=== PATIENT | female | born 1970 | race Caucasian/White ===

== ENCOUNTER 2019-01-15 09:07 | Day surgery (SDC) | payer OTHER ==
[~2019-01-15 09:07] MED LIST: Buffered Lidocaine 1% SYRIN* 1 ML/SYRINGE INTRADERM ONE; Lactated Ringers 1000 ML Bag* 1,000 ML IV SCH; Sodium Citrate/Citric Acid* 15 ML UDC PO ONE
[2019-01-15] MEDS ORDERED: Sodium Citrate/Citric Acid* 15 ML UDC ONE (09:22)
[2019-01-15] MEDS ORDERED: Bupivacaine 0.25% SDV PF* 10 ML VIAL INJ ONE ×2 (10:00→10:29)
[2019-01-15] MEDS ORDERED: Lidocain 1% EPI 1:100,000 * 30 ML MDV ONE (10:29)
[2019-01-15] MEDS ORDERED: Naloxone* 0.4 MG/ML 1 ML VIAL IV PRN (11:12)
[2019-01-15] MEDS ORDERED: Lidocaine 2% PF * 5 ML VIAL ONE (11:19)
[2019-01-15] MEDS ORDERED: Propofol* 10 MG/ML 20 ML BTL ONE (11:19)
[2019-01-15] MEDS ORDERED: fentaNYL* 50 MCG/ML 2 ML VIAL (100 MCG VIAL) ONE (11:19)
[2019-01-15] MEDS ORDERED: Ondansetron INJ* 2 MG/ML VIAL ONE (12:31)
[2019-01-15] MEDS ORDERED: Acetaminophen TAB* 325 MG ONE (12:39)
[2019-01-15 12:54] VITALS: BP 120/78
--- NOTE | 2019-01-15 14:51 | OP ---
OPERATIVE REPORT: DATE OF OPERATION: 01/15/19 - [facility] DATE OF : 70 SURGEON: Piter Laguna MD DEBEAKER: None. ANESTHESIOLOGIST: Dr. Lee. ANESTHESIA: General. PRE-OP DIAGNOSIS: Left carpal tunnel syndrome. POST-OP DIAGNOSIS: Left carpal tunnel syndrome. OPERATIVE PROCEDURE: Left endoscopic carpal tunnel release. INDICATIONS: Porsha has carpal tunnel syndrome. We talked about treatment options , risks, and benefits. She wanted to proceed with surgery. ESTIMATED BLOOD LOSS: 2 mL. COMPLICATIONS: None. FINDINGS: See above and below. DESCRIPTION OF PROCEDURE: Porsha was seen in the preoperative holding area. The correct site, side, and procedure were identified. We came back to the operating room where the arm was prepped and draped in the usual fashion and time-out was performed. The arm was exsanguinated with the Esmarch and the tourniquet was inflated to 225 mmHg. I made a 1-cm transverse incision just ulnar to the palmaris longus tendon. Dissection was carried down and the distal antebrachial fascia was split bluntly with the tenotomy scissors transversely. A 2-prong skin hook was placed. The synovial stripper followed by the dilators and then a sterile Q- tip were used to dilate and dry the canal. The MicroAire endoscopic carpal tunnel system was then introduced. I went ahead in the appropriate position. I pulled the trigger to elevate the blade. As I pulled back proximally, I released the transverse carpal ligament of the ulnar most aspect. I first released everything distally and confirmed that and then I came proximally and released that. I placed a Joshua retractor and confirmed the release. Everything was looking very good. I released the distal antebrachial fascia proximally. The wound was irrigated out and closed with a 4-0 Monocryl suture. A 0.25% Marcaine was infiltrated around the area. A soft dressing was applied and she taken to the recovery room in stable condition. [id number] #: [id number] MTDD
== END 2019-01-15 13:05 | disposition home or self-care (01) ==
LOC: OREAST 09:07
PROVIDERS: ATTEND Orthopaedic Surgery Hand Surgery
DX: G56.02 Carpal tunnel syndrome, left upper limb (principal)
CPT/HCPCS: 81025; A9270-GY; J2405; J2704; J3010; J3490

== ENCOUNTER 2019-10-05 07:00 | Day surgery (SDC) | payer OTHER ==
[~2019-10-05 07:00] MED LIST changes: +Famotidine IV* 10 MG/ML 2 ML (20 mg) IV ONE; -Sodium Citrate/Citric Acid* 15 ML UDC PO ONE
[2019-10-05] MEDS ORDERED: Famotidine IV* 10 MG/ML 2 ML (20 mg) ONE (07:46)
[2019-10-05] MEDS ORDERED: Bupivacaine 0.25% SDV PF* 10 ML VIAL INJ ONE (08:12)
[2019-10-05] MEDS ORDERED: Bupivacaine 0.25% SDV* 30 ML ONE (08:49)
[2019-10-05] MEDS ORDERED: Midazolam* 1 MG/ML 5 ML VIAL (5 MG) ONE (08:57)
[2019-10-05] MEDS ORDERED: Ondansetron INJ* 2 MG/ML VIAL ONE (09:09)
[2019-10-05] MEDS ORDERED: Propofol* 10 MG/ML 20 ML BTL ONE (09:09)
[2019-10-05] MEDS ORDERED: Ketorolac INJ* 30 MG/ML 1 ML VIAL ONE (09:09)
[2019-10-05] MEDS ORDERED: Lidocaine 2% PF * 5 ML VIAL ONE (09:09)
[2019-10-05] MEDS ORDERED: Midazolam* 1 MG/ML 2 ML VIAL (2 MG) ONE (09:21)
[2019-10-05 11:09] VITALS: BP 110/80
--- NOTE | 2019-10-05 15:19 | OP ---
DATE OF OPERATION: 10/05/19 - [facility] DATE OF : 70 SURGEON: Piter Laguna MD EXTRUDER OPERATOR HELPER: None. ANESTHESIOLOGIST: Dr. Pires. ANESTHESIA: Local MAC. PRE-OP DIAGNOSIS: Left trigger thumb. POST-OP DIAGNOSIS: Left trigger thumb. OPERATIVE PROCEDURE: Left trigger thumb release. INDICATIONS: Ms. Bailon has a trigger thumb. We talked about treatment options , risks, and benefits. She wanted to proceed. ESTIMATED BLOOD LOSS: 2 mL. COMPLICATIONS: None. FINDINGS: See above and below. DESCRIPTION OF PROCEDURE: Ms. Bailon was seen in the preoperative holding area. The correct site, side, and procedure were identified. We came back to the operating room where the area was anesthetized with 0.25% plain Marcaine. The arm was then prepped and draped in the usual fashion and a time-out was performed. The arm was exsanguinated and the tourniquet inflated. I made a 1 cm transverse incision in the MCP joint flexion crease. Dissection was carried down through the subcutaneous tissue and full-thickness flaps were bluntly raised off the tendon sheath. Retractors were placed. A very thickened A1 los was incised longitudinally. The release was completed distally and proximally with the tenotomy scissors. The wound was irrigated out and the skin was closed with 4-0 nylon suture. Soft dressing was applied and she was taken to the recovery room in stable condition. [id number]/[facility] #: [id number] MTDD
== END 2019-10-05 11:10 | disposition home or self-care (01) ==
LOC: OR 07:00
PROVIDERS: ATTEND Orthopaedic Surgery Hand Surgery
DX: M65.312 Trigger thumb, left thumb (principal)
CPT/HCPCS: 81025; J1885; J2250; J2405; J2704; J3490

== ENCOUNTER 2021-07-04 05:52 | Inpatient (IN) ==
[~2021-07-04 05:52] MED LIST changes: +Buffered Lidocaine 1% SYRIN 1 ml INTRADERM ONE; -Buffered Lidocaine 1% SYRIN* 1 ML/SYRINGE INTRADERM ONE; +DiMENhydriNATE IV 50 mg/ml 1 ml VIAL IV PUSH ONE; -Famotidine IV* 10 MG/ML 2 ML (20 mg) IV ONE; +HYDROmorphone 1 MG/1 ML SYRINGE IV PRN; -Lactated Ringers 1000 ML Bag* 1,000 ML IV SCH; +Lactated Ringers 1000 ml BAG 1,000 ML IV SCH; +Naloxone 0.4 mg VIAL 0.4 mg/ml 1 ml VIAL IV PRN; +Ondansetron 4 mg VIAL 2 MG/ML 2 ml VIAL IV PRN; +fentaNYL 100 mcg/2 ml 50 MCG/ML VIAL IV PRN
[2021-07-04] MEDS ORDERED: Buffered Lidocaine 1% SYRIN 1 ml INTRADERM ONE (06:18)
[2021-07-04] MEDS ORDERED: ceFAZolin 1 GM ADVAN 1 GM ADDV.VIAL IVPB ONE (06:18)
[2021-07-04] MEDS ORDERED: Heparin 5000 UNITS/ML 1 mL VIAL ONE (06:18)
[2021-07-04] MEDS ORDERED: ceFAZolin 2 GM in NS PREMIX 2 GM/100 ML BAG IVPB ONE (06:18)
[2021-07-04] MEDS ORDERED: DiMENhydriNATE IV 50 mg/ml 1 ml VIAL ONE ×2 (06:19→07:57)
[2021-07-04] MEDS ORDERED: fentaNYL 100 mcg/2 ml 50 MCG/ML VIAL ONE (06:48)
[2021-07-04] MEDS ORDERED: Dexamethasone IV 4 MG/ML VIAL 1 ml VIAL ONE (06:48)
[2021-07-04] MEDS ORDERED: Rocuronium 50 mg VIAL 10 mg/ml 5 ml VIAL (50 mg) ONE ×2 (06:48→08:55)
[2021-07-04] MEDS ORDERED: Propofol 10 MG/ML 20 ML BTL ONE (06:48)
[2021-07-04] MEDS ORDERED: Ondansetron 4 mg VIAL 2 MG/ML 2 ml VIAL ONE ×2 (06:48→11:46)
[2021-07-04] MEDS ORDERED: Lidocaine 2% PF 5 ML VIAL ONE (06:48)
[2021-07-04] MEDS ORDERED: Midazolam 2 mg/2 ml VIAL 1 mg/ml 2 ml VIAL (2 mg) ONE (06:48)
[2021-07-04] MEDS ORDERED: Methylene Blue 0.5 % 50 MG/10 ML AMP IV ONE (07:11)
[2021-07-04] MEDS ORDERED: Bupivacaine 0.5% SDV PF 30ML VIAL ONE (07:11)
[2021-07-04] MEDS ORDERED: Lidocaine 1% w EPI 1:200,000 SDV 30 ML VIAL ONE (07:11)
[2021-07-04] MEDS ORDERED: Morphine 10 MG/ML VIAL (1 ml) ONE (08:24)
[2021-07-04] MEDS ORDERED: Phenylephrine 40 mcg/mL 10mL (400mcg) SYRINGE ONE (09:03)
[2021-07-04] MEDS ORDERED: HYDROmorphone 1 MG/1 ML SYRINGE IV SLOW PU PRN (11:04)
[2021-07-04] MEDS ORDERED: HYDROmorphone 0.5 MG/0.5 ML SYRINGE IV SLOW PU PRN (11:04)
[2021-07-04] MEDS ORDERED: Ondansetron 4 mg VIAL 2 MG/ML 2 ml VIAL IV PRN (11:04)
[2021-07-04] MEDS ORDERED: HYDROcodone/ACET. 7.5/325 LIQ 15 ML UDC PO PRN (11:04)
[2021-07-04] MEDS ORDERED: Prochlorperazine 5 mg/ml 2 ml VIAL (10 mg) IV PRN (12:33)
[2021-07-04] MEDS: Lactated Ringers 1000 ml BAG 1,000 ML IV SCH ×2 (12:37→19:03)
[2021-07-04] MEDS ORDERED: Prochlorperazine 5 mg/ml 2 ml VIAL (10 mg) ONE (12:39)
[2021-07-04] MEDS: Heparin 5000 UNITS/ML 1 mL VIAL SUBCUT SCH ×2 (15:29→21:01)
[2021-07-04] MEDS: Famotidine IV 10 MG/ML 2 ml VIAL (20 mg) IV SLOW PU SCH (21:02)
[2021-07-05] MEDS: Lactated Ringers 1000 ml BAG 1,000 ML IV SCH ×2 (01:52→10:26)
[2021-07-05] MEDS ORDERED: Lactated Ringers 1000 ml BAG 1,000 ML IV SCH (06:00)
[2021-07-05] MEDS ORDERED: Buffered Lidocaine 1% SYRIN 1 ml INTRADERM ONE (06:00)
[2021-07-05] MEDS: Heparin 5000 UNITS/ML 1 mL VIAL SUBCUT SCH ×2 (06:22→13:38)
[2021-07-05] MEDS: Famotidine IV 10 MG/ML 2 ml VIAL (20 mg) IV SLOW PU SCH (08:13)
[2021-07-05] MEDS ORDERED: Flu vaccine *QUAD* 2021-22* 0.5 ML SYRINGE IM ONE (09:00)
[2021-07-05] MEDS ORDERED: D5W 1/2 NS KCl 20 meq 1000 ml 1,000 ML IV SCH (12:00)
[2021-07-05 14:56] VITALS: BP 134/70
[2021-07-07] MEDS ORDERED: Scopolamine PATCH Remove NOTE PATCH OFF SCH (08:00)
== END 2021-07-05 18:50 | disposition home or self-care (01) | DRG 621 ==
LOC: AA 05:52 → SSU 12:18
PROVIDERS: ADMIT Surgery; ATTEND Surgery